=== PATIENT | male | born 1985 | race Caucasian/White ===

== ENCOUNTER 2024-03-19 20:41 | Emergency (ER) | payer BC, SELFPAY ==
[2024-03-19 20:45] VITALS: BP 111/73
--- NOTE | 2024-03-19 23:07 | ED.MUSCINJ ---
HPI-Injury
General
Chief Complaint: Musculo-Skeletal Complaint
Time Seen by Provider: 03/19/24 21:41
History of Present Illness-Injury
Initial Injury comments:
38-year-old male without significant past medical history presenting for right calf pain. Patient reports prior to arrival he was playing softball. He was running and felt a pop in his calf. He has since had pain when trying to ambulate. Denies
pain in the Achilles region. Denies numbness or tingling to the extremity. Denies chest pain or difficulty breathing. Denies additional injuries.
Phy Exam
Physical Exam
Physical Exam:
General: Well-appearing, no clinical signs of dehydration, nontoxic and in no acute distress
HEENT: protecting airway
Neck: appears supple
CV: Normal heart rate
Resp: No accessory muscle use, no increased work of breathing
Abd: Nondistended
Extremities: No deformity or swelling to the right lower extremity. Focal tenderness to the right calf. No tenderness to the Achilles. Range of motion of the foot is intact with dorsi flexion and plantarflexion. Distal sensation and pulses intact
Neuro: alert, no focal neurologic deficit
: deferred
Rectal: deferred
Psych: Normal affect
Skin: Intact
Injury Course
Orders/Labs/Results
Orders:
Orders
03/19/24 22:03
CR Leg Tibia/fibula Right 2 Vw Urgent
Reason For Exam: pain in calf, felt pop
03/19/24 23:10
Ketorolac [Toradol] 15 mg IM NOW STA
MDM/Problems Addressed
MDM/Problems Addressed:
38-year-old male presenting for right calf pain after feeling a pop while playing softball. Vital signs normal
On exam, patient well-appearing, no acute distress. Patient with focal tenderness overlying the right gastrocnemius muscle of the calf. Suspect strain versus sprain. No tenderness to the Achilles with dorsiflexion and plantarflexion intact.
Without concern for Achilles rupture or Achilles tear. Will obtain x-ray imaging of the tib-fib region. Otherwise no neurovascular compromise to the extremity. Will core rescuer Toradol for pain
00:05 -x-ray without acute fracture or malalignment. Continue to suspect musculoskeletal injury. Feel stable for discharge with outpatient orthopedic follow-up. Will provide crutches. Advised ice/rest/elevation and Motrin. Return precaution
discussed and patient verbalized understanding
*Critical Care Note
Total Time (30-74mins, 75-104mins- exclusive of procedures): Not Applicable
ED Attending Note
-
Portions of this chart may have been created with voice recognition software.� Occasional wrong word or��sound alike� substitutions may have occurred due to the inherent limitations of voice recognition software.
Discharge Plan
Departure
Referrals:
NONE,* [Family Provider] -
Interventions
Interventions:
*Risk Screen - Suicide Last Done: 03/19/24 20:45
*General Assessment Last Done: 03/19/24 20:55
*Neglect/Abuse Screening Last Done: 03/19/24 20:55
ED- Fall Risk Assessment Last Done: 03/19/24 20:55
*ED COVID-19 Vaccine History Last Done: 03/19/24 20:55
ED-Musculoskeletal Assessment Last Done: 03/19/24 20:55
Discharge Date and Time
Print Language: DIVEHI
[2024-03-19] MEDS: TORADOL 15 MG IM (23:50)
== END 2024-03-20 00:15 | disposition home or self-care (01) ==
LOC: EMR 20:41
PROVIDERS: EMERGENCY PHYSICIAN Student in an Organized Health Care Education/Training Program
DX: S86.911A Strain of unspecified muscle(s) and tendon(s) at lower leg level, right leg, initial encounter (principal); X58.XXXA Exposure to other specified factors, initial encounter; Y93.64 Activity, baseball
CPT/HCPCS: 99283; 96372; 73590